=== PATIENT | male | born 1985 | race Two or more races ===

== ENCOUNTER 2022-10-13 06:51 | Emergency (ER) | payer BC, OTHER ==
[~2022-10-13] VITALS: Ht 182.9 cm; Wt 100.0 kg
[2022-10-13 06:55] VITALS: O2SAT 0
[2022-10-13 07:05] VITALS: BP 198/37; PULSE 121; RESP 96; TEMP 98.6
== END 2022-10-13 07:34 ==
LOC: EDBD 06:51 → ER 06:51
DX: I46.9 Cardiac arrest, cause unspecified (principal); E11.9 Type 2 diabetes mellitus without complications
CPT/HCPCS: 92950